=== PATIENT | male | born 1990 | race Caucasian/White ===

== ENCOUNTER 2020-12-26 06:16 | Emergency (ER) | payer SELFPAY ==
--- NOTE | 2020-12-26 06:35 | EDM.PDOCBH ---
<Robles Ortega - Last Filed: 12/26/20 16:19> ED HPI GENERAL MEDICAL PROBLEM - General Chief Complaint: Behavioral/Psych Stated Complaint: EVAL Time Seen by Provider: 12/26/20 06:17 - Related Data Allergies Allergy/AdvReac Type Severity Reaction Status Date / Time No Known Allergies Allergy Verified 12/26/20 09:33 Home Meds: Home Meds NK [No Known Home Meds] 06/26/13 [History] COURSE, BEHAVIORAL HEALTH COMP - Course Re-Assessment/Re-Exam: Took over care at 7 AM this gentleman is still quite somnolent but he is arousable to noxious stimuli, will await for medications to resolve for further assessment Departure - Departure Time of Disposition: 16:20 Disposition: DC/Tfer to Psych Hosp/Unit 65 Condition: Fair Clinical Impression: Suicide ideation - Discharge Information Referrals: PCP,None [Primary Care Provider] - Forms: ED Department Discharge - Assessment/Plan Plan: Assessment Acuity = acute Site and laterality = suicidal ideation on a 72-hour hold Etiology = unknown Manifestations = none Location of injury = Home Lab values = CBC, CMP unremarkable urinalysis positive for cannabis alcohol level is 184 Covid test was negative Plan He has been pleasant and cooperative while he was in the emergency department he is willing to seek treatment and is accommodating for transport, we did gain acceptance to [facility] he will be transported via EMS services as no psychiatric transport is available at this time This note was dictated using [employer] voice recognition software please call with any questions on syntax or grammar. <Nicholas Molina - Last Filed: 12/26/20 18:32> ED HPI GENERAL MEDICAL PROBLEM - General Source of Information: Reports: EMS History Limitations: Reports: Altered Mental Status - History of Present Illness INITIAL COMMENTS - FREE TEXT/NARRATIVE: Jason is a 30-year-old male presenting to the ED via [facility] having a mental health crisis. The girlfriend reports that the patient had a mental breakdown and had fashioned a noose fixing it from the rafters in the garage with the intent to hang himself. EMS responded and found the patient to be very anxious and agitated and administered Haldol 5 mg IV, Versed 5 mg IV, and diphenhydramine 50 mg IV resulting the patient quickly succumbing to sedation. He arrives on cot from EMS unresponsive and slightly hypotensive with a blood pressure of 94/56 mmHg, heart rate of 87, and an O2 O2 sat of 91% on room air. Past Medical History - Past Health History Medical/Surgical History: Denies Medical/Surgical History ED ROS GENERAL - Review of Systems Review Of Systems: Unable To Obtain Reason Not Obtained: Patient is sedated on 5 of Haldol, 5 of Versed, and 50 of [place] ED EXAM, BEHAVIORAL HEALTH - Physical Exam Exam: See Below Exam Limited By: Other (Patient is sedated on 5 mg of Haldol IV, 5 mg of Versed IV, and 50 mg of diphenhydramine IV) General Appearance: Obtunded Eye Exam: Bilateral Eye: PERRL (Pinpoint but reactive pupils) Throat/Mouth: Normal Oropharynx, No Airway Compromise Head: Atraumatic, Normocephalic Neck: Normal Inspection, Supple, Other (No evidence of rope whiting or strangulation around the neck) Respiratory/Chest: No Respiratory Distress, Lungs Clear, Normal Breath Sounds Cardiovascular: Normal Peripheral Pulses, Regular Rate, Rhythm, No Murmur GI/Abdominal: Normal Bowel Sounds, Soft Extremities: Normal Inspection COURSE, BEHAVIORAL HEALTH COMP - Course Vital Signs: Last Vital Signs Temp 36.2 C 12/26/20 06:17 Pulse 86 12/26/20 15:54 Resp 12 12/26/20 15:54 BP 96/67 12/26/20 15:54 Pulse Ox 94 L 12/26/20 15:54 Orders, Labs, Meds: Laboratory Tests 12/26/20 12/26/20 12/26/20 Range/Units 06:30 06:32 06:32 WBC 5.0 (4.5-11.0) K/uL RBC 4.47 (4.30-5.90) M/uL Hgb 14.4 (12.0-15.0) g/dL Hct 40.9 (40.0-54.0) % MCV 92 (80-98) fL MCH 32 H (27-31) pg MCHC 35 (32-36) % Plt Count 241 (150-400) K/uL Neut % (Auto) 49.6 (36-66) % Lymph % (Auto) 35.3 (24-44) % [place] % (Auto) 12.1 H (2-6) % Eos % (Auto) 2.4 (2-4) % Baso % (Auto) 0.6 (0-1) % Sodium 140 (140-148) mmol/L Potassium 3.6 (3.6-5.2) mmol/L Chloride 105 (100-108) mmol/L Carbon Dioxide 24 (21-32) mmol/L Anion Gap 10.8 (5.0-14.0) mmol/L BUN 8 (7-18) mg/dL Creatinine 0.8 D (0.8-1.3) mg/dL Est Cr Clr Drug Dosing TNP Estimated GFR (MDRD) > 60 (>60) Glucose 95 (74-106) mg/dL Calcium 7.8 L (8.5-10.1) mg/dL Total Bilirubin 0.4 (0.2-1.0) mg/dL AST 22 (15-37) U/L ALT 32 (12-78) U/L Alkaline Phosphatase 82 (46-116) U/L Total Protein 6.5 (6.4-8.2) g/dL Albumin 3.2 L (3.4-5.0) g/dL Globulin 3.3 (2.3-3.5) g/dL Albumin/Globulin Ratio 1.0 L (1.2-2.2) TSH, Ultra Sensitive 1.572 (0.358-3.740) uIU/mL Urine Color (YELLOW) Urine Appearance (CLEAR) Urine pH (5.0-8.0) Ur Specific [place] (1.008-1.030) Urine Protein (NEGATIVE) mg/dL Urine Glucose (UA) (NEGATIVE) mg/dL Urine Ketones (NEGATIVE) mg/dL Urine Occult Blood (NEGATIVE) Urine Nitrite (NEGATIVE) Urine Bilirubin (NEGATIVE) Urine Urobilinogen (0.2-1.0) EU/dL Ur Leukocyte Esterase (NEGATIVE) Urine RBC (0-5) Urine WBC (0-5) Ur Epithelial Cells Amorphous Sediment Urine Bacteria Urine Mucus Urine Opiates Screen (NEGATIVE) Ur Oxycodone Screen (NEGATIVE) Urine Methadone Screen (NEGATIVE) Ur Propoxyphene Screen (NEGATIVE) Ur Barbiturates Screen (NEGATIVE) Ur Tricyclics Screen (NEGATIVE) Ur Phencyclidine Scrn (NEGATIVE) Ur Amphetamine Screen (NEGATIVE) U Methamphetamines Scrn (NEGATIVE) Urine MDMA Screen (NEGATIVE) U Benzodiazepines Scrn (NEGATIVE) U Cocaine Metab Screen (NEGATIVE) U Marijuana (THC) Screen (NEGATIVE) Ethyl Alcohol mg/dL SARS CoV-2 RNA Rapid KATE 12/26/20 12/26/20 12/26/20 Range/Units 06:32 09:23 09:23 WBC (4.5-11.0) K/uL RBC (4.30-5.90) M/uL Hgb (12.0-15.0) g/dL Hct (40.0-54.0) % MCV (80-98) fL MCH (27-31) pg MCHC (32-36) % Plt Count (150-400) K/uL Neut % (Auto) (36-66) % Lymph % (Auto) (24-44) % [place] % (Auto) (2-6) % Eos % (Auto) (2-4) % Baso % (Auto) (0-1) % Sodium (140-148) mmol/L Potassium (3.6-5.2) mmol/L Chloride (100-108) mmol/L Carbon Dioxide (21-32) mmol/L Anion Gap (5.0-14.0) mmol/L BUN (7-18) mg/dL Creatinine (0.8-1.3) mg/dL Est Cr Clr Drug Dosing Estimated GFR (MDRD) (>60) Glucose (74-106) mg/dL Calcium (8.5-10.1) mg/dL Total Bilirubin (0.2-1.0) mg/dL AST (15-37) U/L ALT (12-78) U/L Alkaline Phosphatase (46-116) U/L Total Protein (6.4-8.2) g/dL Albumin (3.4-5.0) g/dL Globulin (2.3-3.5) g/dL Albumin/Globulin Ratio (1.2-2.2) TSH, Ultra Sensitive (0.358-3.740) uIU/mL Urine Color Yellow (YELLOW) Urine Appearance Clear (CLEAR) Urine pH 6.0 (5.0-8.0) Ur Specific [place] 1.025 (1.008-1.030) Urine Protein Negative (NEGATIVE) mg/dL Urine Glucose (UA) Negative (NEGATIVE) mg/dL Urine Ketones Negative (NEGATIVE) mg/dL Urine Occult Blood Trace-intact H (NEGATIVE) Urine Nitrite Negative (NEGATIVE) Urine Bilirubin Negative (NEGATIVE) Urine Urobilinogen 0.2 (0.2-1.0) EU/dL Ur Leukocyte Esterase Negative (NEGATIVE) Urine RBC Not seen (0-5) Urine WBC 0-5 (0-5) Ur Epithelial Cells Moderate Amorphous Sediment Few Urine Bacteria Not seen Urine Mucus Moderate Urine Opiates Screen Negative (NEGATIVE) Ur Oxycodone Screen Negative (NEGATIVE) Urine Methadone Screen Negative (NEGATIVE) Ur Propoxyphene Screen Negative (NEGATIVE) Ur Barbiturates Screen Negative (NEGATIVE) Ur Tricyclics Screen Negative (NEGATIVE) Ur Phencyclidine Scrn Negative (NEGATIVE) Ur Amphetamine Screen Negative (NEGATIVE) U Methamphetamines Scrn Negative (NEGATIVE) Urine MDMA Screen Negative (NEGATIVE) U Benzodiazepines Scrn Negative (NEGATIVE) U Cocaine Metab Screen Negative (NEGATIVE) U Marijuana (THC) Screen Presumptive positive H (NEGATIVE) Ethyl Alcohol 184 mg/dL SARS CoV-2 RNA Rapid KATE 12/26/20 Range/Units 09:26 WBC (4.5-11.0) K/uL RBC (4.30-5.90) M/uL Hgb (12.0-15.0) g/dL Hct (40.0-54.0) % MCV (80-98) fL MCH (27-31) pg MCHC (32-36) % Plt Count (150-400) K/uL Neut % (Auto) (36-66) % Lymph % (Auto) (24-44) % [place] % (Auto) (2-6) % Eos % (Auto) (2-4) % Baso % (Auto) (0-1) % Sodium (140-148) mmol/L Potassium (3.6-5.2) mmol/L Chloride (100-108) mmol/L Carbon Dioxide (21-32) mmol/L Anion Gap (5.0-14.0) mmol/L BUN (7-18) mg/dL Creatinine (0.8-1.3) mg/dL Est Cr Clr Drug Dosing Estimated GFR (MDRD) (>60) Glucose (74-106) mg/dL Calcium (8.5-10.1) mg/dL Total Bilirubin (0.2-1.0) mg/dL AST (15-37) U/L ALT (12-78) U/L Alkaline Phosphatase (46-116) U/L Total Protein (6.4-8.2) g/dL Albumin (3.4-5.0) g/dL Globulin (2.3-3.5) g/dL Albumin/Globulin Ratio (1.2-2.2) TSH, Ultra Sensitive (0.358-3.740) uIU/mL Urine Color (YELLOW) Urine Appearance (CLEAR) Urine pH (5.0-8.0) Ur Specific [place] (1.008-1.030) Urine Protein (NEGATIVE) mg/dL Urine Glucose (UA) (NEGATIVE) mg/dL Urine Ketones (NEGATIVE) mg/dL Urine Occult Blood (NEGATIVE) Urine Nitrite (NEGATIVE) Urine Bilirubin (NEGATIVE) Urine Urobilinogen (0.2-1.0) EU/dL Ur Leukocyte Esterase (NEGATIVE) Urine RBC (0-5) Urine WBC (0-5) Ur Epithelial Cells Amorphous Sediment Urine Bacteria Urine Mucus Urine Opiates Screen (NEGATIVE) Ur Oxycodone Screen (NEGATIVE) Urine Methadone Screen (NEGATIVE) Ur Propoxyphene Screen (NEGATIVE) Ur Barbiturates Screen (NEGATIVE) Ur Tricyclics Screen (NEGATIVE) Ur Phencyclidine Scrn (NEGATIVE) Ur Amphetamine Screen (NEGATIVE) U Methamphetamines Scrn (NEGATIVE) Urine MDMA Screen (NEGATIVE) U Benzodiazepines Scrn (NEGATIVE) U Cocaine Metab Screen (NEGATIVE) U Marijuana (THC) Screen (NEGATIVE) Ethyl Alcohol mg/dL SARS CoV-2 RNA Rapid KATE Negative Medications Discontinued Medications Generic Name Dose Route Start Last Admin Trade Name Bud PRN Reason Stop Dose Admin Sodium Chloride 1,000 mls @ 999 mls/hr 12/26/20 06:45 12/26/20 06:37 Normal Saline IV 999 mls/hr ASDIRECTED TASHIA Administration Sodium Chloride 1,000 mls @ 999 mls/hr 12/26/20 08:37 12/26/20 08:47 Normal Saline IV 12/26/20 09:37 999 mls/hr .BOLUS ONE Administration Re-Assessment/Re-Exam: Patient is currently sedated and unresponsive so we are unable to answer any questions or do any meaningful evaluation at this time. I will turn the care over to the oncoming ED doctor at 0700 hrs., Officer. Once the patient has become more alert and a meaningful interview can occur. Patient is on a 72-hour hold for suicide ideation with suicide attempt. This was initiated at 0600 hrs. on 12/26/2020. Labs were obtained including a CBC, comprehensive metabolic profile, ethanol level, urinalysis, and urine drug screen. Discharge vs Psych Eval/Treatment:: 12/26/20 15:30 patient was medically cleared for admission to inpatient psychiatry. The patient was accepted for inpatient admission to [facility]. Sepsis Event Note (ED) - Focused Exam Vital Signs: Vital Signs Pulse Resp BP Pulse Ox 12/26/20 15:54 86 12 96/67 94 L 12/26/20 14:30 78 104/54 L 93 L 12/26/20 12:26 84 98/63 97 12/26/20 12:05 58 L 83/44 L 96 12/26/20 11:35 58 L 99/58 L 96 12/26/20 11:05 65 91/51 L 96 12/26/20 10:35 66 88/56 L 96 12/26/20 10:05 68 92/55 L 95 12/26/20 09:35 63 11 L 99/62 95 12/26/20 09:05 76 15 101/65 98 12/26/20 08:35 70 11 L 100/61 97 12/26/20 08:05 66 17 87/56 L 97 12/26/20 07:35 70 18 91/46 L 96 12/26/20 07:05 80 21 H 79/46 L 93 L 12/26/20 06:35 81 81/44 L
[2020-12-26] MEDS ORDERED: Sodium Chloride 0.9% 1,000 ML IV SCH (06:45)
[2020-12-26] MEDS ORDERED: Sodium Chloride 0.9% 1,000 ML IV ONE (08:37)
[2020-12-26 15:54] VITALS: BP 96/67; PULSE 86
== END 2020-12-26 16:59 ==
LOC: JP.ED 06:16
DX: R45.851 Suicidal ideations (principal); Z20.822 Contact with and (suspected) exposure to COVID-19
CPT/HCPCS: 36415; 80053; 80305; 80307; 81001; 84443; 85025; 87635; 99285; J7030; U0002

== ENCOUNTER 2021-05-20 11:35 | Emergency (ER) | payer OTHER ==
[2021-05-20 11:54] VITALS: BP 126/81; PULSE 67
== END 2021-05-20 13:38 | disposition home or self-care (01) ==
LOC: JP.ED 11:35
DX: S66.912A Strain of unspecified muscle, fascia and tendon at wrist and hand level, left hand, initial encounter (principal); Z72.0 Tobacco use; X50.1XXA Overexertion from prolonged static or awkward postures, initial encounter; Y99.0 Civilian activity done for income or pay
CPT/HCPCS: 73110-26-LT; 73110-LT; 99282; 99283-25

== ENCOUNTER 2024-01-02 23:25 | Emergency (ER) | payer SELFPAY ==
[2024-01-02 23:44] VITALS: BP 115/74; PULSE 81
[2024-01-02] MEDS: Cyclobenzaprine 10 MG Tab PO ONE (23:45)
[2024-01-02] MEDS: Ketorolac 30 MG/ML SDV IM ONE (23:46)
== END 2024-01-03 09:20 | disposition home or self-care (01) ==
LOC: JP.ED 23:25
DX: S13.4XXA Sprain of ligaments of cervical spine, initial encounter (principal); W01.0XXA Fall on same level from slipping, tripping and stumbling without subsequent striking against object, initial encounter
CPT/HCPCS: 72125; 76377; 96372; 99283; 99284; A9270-GY; J1885